=== PATIENT | female | born 1970 | race Caucasian/White ===

== ENCOUNTER 2016-12-03 13:57 | Emergency (ER) | payer MEDICAID ==
[~2016-12-03] VITALS: Ht 167.6 cm; Wt 107.5 kg
--- NOTE | 2016-12-03 15:21 | Urgent Treatment Center Report ---
History of Present Issue Date/Time Seen by Provider 12/03/16 1503 Visit Reason Pt arrived:Walked Presenting Problem:PT C/O LT HIP PAIN SINCE THIS MORNING AND DENIES ANY INJURY OTHER THAN A POSSIBLE STRAINING DURING EXERCISE Location if Accident: Onset of symptoms date/time:/ or onset unknown for:MEDICAL HX UNKNOWN Have you (or family members/close friends) recently traveled outside the [place]? N If Yes, where/when: Have you had exposure to infectious disease within the past month? TB? Other? Specify: Patient state that she was exercising this morning and does not recall doing anything but stretches. State that later on she began to have pain in her buttock area that radiated down to the top of her leg. States she had a hip replacement several years ago in this hip but she has not done anything to cause injury to the bone. State that it feels like a deep ache that runs down the middle of her buttock area ALLERGIES Coded Allergies: clarithromycin (From BIAXIN) (Mild, 02/28/15) Home Medications Active Scripts Amoxicillin/Potassium Clav (Augmentin 875-125 Tablet) 1 EACH PO BID #20 TAB Prov: 08/27/15 Albuterol (Albuterol-Hfa Inhaler) 1 PUFF IH QID #1 INH Ref 6 Prov: 08/27/15 ALBUTEROL (Albuterol 0.083% Neb) 2.5 MG INH QID #45 VIAL Ref 2 Prov: 08/27/15 Reported Medications Lisinopril 5 MG NG DAILY #30 Aspirin (Aspirin EC) 81 MG PO DAILY #30 BUPRENORPHINE HCL/NALOXONE HCL (Buprenorphin-Naloxon 8-2 MG Sl) 1 TAB SL BID #56 FLUOXETINE HCL (Fluoxetine Hydrochloride) 20 MG PO DAILY #30 Omeprazole 40 MG PO DAILY #60 CLOPIDOGREL BISULFATE (Clopidogrel) 75 MG PO DAILY #30 Metoprolol Tartrate (Lopressor) 12.5 MG PO DAILY #30 Levothyroxine Sodium (Levothyroxine 0.025MG) 0.025 MG PO DAILY #30 Furosemide (Furosemide) 20 MG PO DAILY #30 Gabapentin (Gabapentin 400MG Capsule) 800 MG PO DAILY #60 History Medical History General CAD? No Angina: No IA: Yes Hypertension? Yes Hyperlipidemia? Yes CHF? No DVT? No PE? No COPD? No Asthma? No Anemia? No GERD? No Gastric ulcers? No GI Bleed? No Hernia? No Thyroid Problems? No Hypothyroidism? No CVA? No Seizures? No Diabetes? No Renal Insuffiency? No UTI? No Stones? No BPH? No GB Disease: No Nephritic Syndrome? No Asplenia? No Hepatitis? No Sickle Cell Disease? No Arthritis? No Migraines? No Cataracts? No Glaucoma? No MRSA? No HIV? No TB? No Anxiety? No Depression? No Cancer? No More? No Immunization HX DT/Tetanus > 10 YRS Flu Refused Pneumonia Refuses Surgical Hx Previous Surgery?Y TONSILLECTOMY KIDNEY STONES R HIP REPLACEMENT Family History Family HX Diabetes No CAD No Hypertension No Hyperlipidemia No Cancer No TB No Social History Smoking Hx Smoker: Never Smoker Tobacco: No Alcohol Alcohol: No Review of Systems All Other Systems Reviewed and Negative Comment Pain in her lower back/mid buttock area described as deep throbbing like pain that feels achy, denies falling, denies injury Physical Exam Vital Signs Vital Signs Date Time Temp Pulse Resp B/P Pulse O2 O2 Flow FiO2 Ox Delivery Rate 12/03 1521 18 12/03 1417 98.4 75 16 151/80 96 12/03 1404 98.4 75 16 151/80 96 General Appearance normal appearance, WD/WN, no apparent distress Respiratory Status Yes: trachea midline, chest symmetrical, non tender chest. No: respiratory distress. Cardiovascular normal exam, regular rate/rhythm, no peripheral edema Back Achy pain in lower back/upper to mid buttock area that does not radiate down leg, pain describe as that usually associated with sciatica, tenderness noted over sciatic nerve area. 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 No Results/Orders Current Medication Orders Sig/Ede Start time Last Medication Dose Route Stop Time Status Admin Ketorolac 60 MG ONCE ONE 12/03 1515 DC 12/03 Tromethamine IM 12/03 151 1521 Ketorolac 0 .STK-MED ONE 12/03 1515 DC Tromethamine .ROUTE Methylprednisolone 125 MG ONCE ONE 12/03 1515 DC 12/03 Sodium Succinate IM 12/03 151 1521 Methylprednisolone 0 .STK-MED ONE 12/03 1515 DC Sodium Succinate .ROUTE Progress [facility] Progress Notes Comment Patient states that pain is better after medication Departure Departure Time of Disposition 1533 Disposition DC Home or Self Care(routine) Clinical Impression Primary Impression: Sciatica Qualifiers: Laterality: left Qualified Code: M54.32 - Sciatica, left side Condition STABLE Patient Instructions DI for Sciatica, Sciatica Additional Instructions Take medication as prescribed FOllow up with family doctor Return if needed Do stretches as demonstrated in office today Discharge Counseling Counseled pt/family regarding diagnosis, medications/RX, home care, follow up needs Prescriptions Current Visit Scripts Cyclobenzaprine Hcl (Flexeril) 10 MG PO TID #15 TAB at 9753
[2016-12-03 15:40] VITALS: BP 151/80
== END 2016-12-03 15:40 | disposition home or self-care (01) ==
LOC: ER 13:57 → UTC 14:12
DX: M54.32 Sciatica, left side (principal); I10 Essential (primary) hypertension; Z79.02 Long term (current) use of antithrombotics/antiplatelets; Z79.82 Long term (current) use of aspirin; Z79.899 Other long term (current) drug therapy

== ENCOUNTER → 2016-12-26 | Outpatient (CLI) | payer MEDICAID ==
[~2016-12-26] MED LIST: ALBUTEROL-200 PUFFS/ IH; ALBUTEROL2.5 MG/NEB INH; ASPIRIN ADULT L81 M3 PO; ATORVASTATIN CA80 MG PO; AUGMENTIN 875-1 EACH PO; BUPRENORPHINE-N1 TAB SL; CIPRO 500MG TA500 MG PO; CIPROFLOXACIN500 MG PO; CLOPIDOGREL75 M2 PO; COREG 12.5 MG12.5 MG PO; COREG25 M1 PO; ETODOLAC400 MG PO; FLEXERIL10 MG PO; FLUOXETINE HYDR20 M1 PO; FUROSEMIDE 20MG20 MG PO; GABAPENTIN 400400 M1 PO; GOOD NEIGHBOR P20 M1 PO; LEVOTHYROXIN0.025 M1 PO; LISINOPRIL5 MG NG; LOPRESSOR 25MG.25 MG PO; LORTAB 5/500 501 TAB PO; LORTAB 500 MG-11 TAB PO; NAPROSYN375 MG PO; PROZAC40 MG PO; ROBAXIN-750750 MG PO; SUBOXONE 8 MG-21 TAB SL; VIVANCE; VYVANSE60 MG PO; XANAX 1MG TABLET1 MG PO; ZANAFLEX4 MG PO
--- NOTE | 2016-12-26 16:00 | RADIOLOGY REPORT PS360 ---
US PELVIS-TRANSVAGINAL ONLY HISTORY: Pelvic pain, dysfunctional uterine bleeding RLQ PAIN ORDERING PHYSICIAN: Luis E Sherman MD PATIENT AGE: 46 years COMPARISON: None FINDINGS: The uterus measures 8 x 4 x 5 cm with a combined endometrial thickness of 5 mm. There is a heterogeneous area of echogenicity in the fundus anteriorly measuring 1.3 cm possibly related to fibroid involvement. The right ovary is 3 x 2.5 cm and contains a 2.4 cm septal cyst. The left ovary is 2 x 1.7 cm and has an unremarkable appearance. No cul-de-sac fluid evident. IMPRESSION: 1. Possible uterine fibroid at 1.3 cm 2. 2 cm simple appearing right ovarian cyst
--- NOTE | 2016-12-30 17:39 | RADIOLOGY REPORT PS360 ---
DIG MAMM-SCREEN STEPHANE W/CAD CAD Screening ORDERING PHYSICIAN : Luis E Sherman MD PATIENT AGE: 46 years GENDER: Female COMPARISON: Previous mammograms: April 2015[facility] ; and June 2011 from [facility] INDICATION: Routine screening . No hormones. No new complaints. Family history. Mother with breast cancer in her 30s premenopausal TECHNIQUE: Standard CC and MLO images were obtained. R2 CAD reviewed. FINDINGS: Minimal fibroglandular elements bilateral RIGHT BREAST: Focal Density cc view labeled A & measures 8.3 mm. It has is remain stable since prior studies dating back to 2011. It also dissipates on the MLO view supporting it is merely a focal area of tissue. Not of concern. There is been slight progressive fatty replacement bilaterally even since 2011. No new areas of concern in either breast. There are some additional scattered benign dense calcification since 2011 but these are shown only slight additional progression since 2016. I suspect some of these dense calcifications are dermal in nature.. LEFT BREAST: No new areas of concern IMPRESSION: Stable bilateral mammogram with no new areas of concern. Ongoing annual follow-up in this patient with positive family history should be encouraged . BI-RADS CATEGORY: 2_Benign RECOMMENDED FOLLOWUP: 12M 12 MONTH FOLLOW-UP (A letter has been sent to the patient regarding results of the study.)
--- NOTE | 2016-12-30 17:39 | RADIOLOGY REPORT PS360 ---
DIG MAMM-SCREEN STEPHANE W/CAD CAD Screening ORDERING PHYSICIAN : Luis E Sherman MD PATIENT AGE: 46 years GENDER: Female COMPARISON: Previous mammograms: April 2015[facility] ; and June 2011 from [facility] INDICATION: Routine screening . No hormones. No new complaints. Family history. Mother with breast cancer in her 30s premenopausal TECHNIQUE: Standard CC and MLO images were obtained. R2 CAD reviewed. FINDINGS: Minimal fibroglandular elements bilateral RIGHT BREAST: Focal Density cc view labeled A & measures 8.3 mm. It has is remain stable since prior studies dating back to 2011. It also dissipates on the MLO view supporting it is merely a focal area of tissue. Not of concern. There is been slight progressive fatty replacement bilaterally even since 2011. No new areas of concern in either breast. There are some additional scattered benign dense calcification since 2011 but these are shown only slight additional progression since 2016. I suspect some of these dense calcifications are dermal in nature.. LEFT BREAST: No new areas of concern IMPRESSION: Stable bilateral mammogram with no new areas of concern. Ongoing annual follow-up in this patient with positive family history should be encouraged . BI-RADS CATEGORY: 2_Benign RECOMMENDED FOLLOWUP: 12M 12 MONTH FOLLOW-UP (A letter has been sent to the patient regarding results of the study.)
== END ==
LOC: RAD 12-19 09:00
DX: Z12.31 Encounter for screening mammogram for malignant neoplasm of breast (principal); R10.11 Right upper quadrant pain
CPT/HCPCS: G0202

== ENCOUNTER → 2016-12-31 | Outpatient (CLI) | payer MEDICAID | LOC: SL 20:09 | DX: I10 Essential (primary) hypertension (principal); G47.10 Hypersomnia, unspecified; R06.83 Snoring; I25.10 Atherosclerotic heart disease of native coronary artery without angina pectoris ==